=== PATIENT | male | born 1995 | race Caucasian/White ===

== ENCOUNTER 2018-08-15 09:42 | Emergency (ER) | payer SELFPAY ==
[2018-08-15] MEDS ORDERED: traMADol HCl 50 MG TAB ONE (10:00)
[2018-08-15] MEDS ORDERED: Ibuprofen 800 MG TAB ONE (10:22)
--- NOTE | 2018-08-15 19:31 | CT ---
CT OF THE BRAIN WITHOUT CONTRAST 08/15/[address] shows normal sized ventricle with no shift. No intracranial bleeding or extra-axial hematoma was seen. There is no evidence of mass, edema, or stroke. The skull appears intact. The para nasal sinuses are clear, as are the mastoid air cells. IMPRESSION: No acute intracranial findings. POS: HOME
--- NOTE | 2018-08-15 19:33 | CT ---
CT OF THE CERVICAL SPINE: 08/15/[address] of the cervical spine was performed for evaluation following trauma. Axial slices were acqu ired followed by coronal and sagittal reconstructions. No fracture, dislocation, or disc space narrowing was seen. The C1 to dens distance is normal and the soft tissues are normal in thickness. There is no evidence of foraminal or central canal stenosis at any level. The lung apices are clear and showed no pneumothorax. IMPRESSION: No acute findings. POS: HOME
== END 2018-08-15 10:49 | disposition home or self-care (01) ==
LOC: BURERS 09:42
DX: S16.1XXA Strain of muscle, fascia and tendon at neck level, initial encounter (principal); S00.93XA Contusion of unspecified part of head, initial encounter; W20.8XXA Other cause of strike by thrown, projected or falling object, initial encounter
CPT/HCPCS: 70450; 72125